=== PATIENT | male | born 1960 | race Two or more races ===

== ENCOUNTER 2025-06-13 06:00 | Day surgery (SDC) | payer OTHER ==
[2025-06-10 10:22] VITALS: BP 140/87
[2025-06-10 11:18] LABS: BASO % 0.6 % (0.1-1.2); EOS # 0.11 (0.04-0.54); EOS % 1.5 % (0.7-7.0); LYMPH # 2.55 (1.18-3.74); LYMPH % 35.2 % (19.3-53.1); MEAN PLATELET VOLUME 9.70 fl (9.4-12.4); MONO # 0.65 (0.24-0.82); MONO % 9.0 % (4.7-12.5); NEUT # 3.87 (1.56-6.13); NEUT % 53.3 % (34.0-71.1); RED CELL DISTRIBUTION WIDTH 14.3 % (11.6-14.4)
[2025-06-10 11:21] LABS: URINE APPEARANCE Clear; URINE BILIRRUBIN Negative (NEGATIVE); URINE BLOOD Negative; URINE COLOR Yellow; URINE GLUCOSE Negative (NEGATIVE); URINE KETONE Negative (NEGATIVE); URINE LEUKOCYTE Trace; URINE NITRATE Negative; URINE PROTEIN Negative (NEGATIVE); URINE UROBILINOGEN 0.2 E.U./dl
[2025-06-10 11:26] LABS: URINE BACTERIA 17.9 uL (0.0-1933); URINE EPITHELIAL CELLS 1.6 uL (0.0-38.8); URINE RBC 7.4 uL (0.0-20.8); URINE WBC 24.3 uL (0.0-23.2)
[2025-06-10 11:38] LABS: URINE CAST 0.00 uL (0.0-1.40)
[2025-06-10 11:46] LABS: INR 1.1
[2025-06-10 11:56] LABS: BUN CREA RATIO 16.0 (7.0-25.0); CREATININE SERUM 0.9 mg/dL (0.70-1.30); GFR 84.95; GLUCOSE FASTING 104.0 mg/dL (65-100); OSMOLALITY SERUM 282.0 MOSM/KG (275-295)
[~2025-06-13] VITALS: Ht 177.8 cm; Wt 96.2 kg
[~2025-06-13 06:00] MED LIST: CEFADROXIL500 MG PO
[2025-06-13] MEDS ORDERED: TYLENOL ARTHRI650 MG PO (07:59)
[2025-06-13] MEDS ORDERED: TRAMADOL HCL50 MG PO (07:59)
[2025-06-13] MEDS ORDERED: KETO10TA2 PO (07:59)
[2025-06-13] MEDS ORDERED: MIRALAX17 GM PO (07:59)
[2025-06-13] MEDS ORDERED: CIPROFLOXACIN IN 5 % DEXTROSE 400 MG/200 ML PIGGYBAG IV ONE (08:19)
[2025-06-13] MEDS ORDERED: BUPIVACAINE HCL/MPF 0.5% 30ML VIAL ONE (08:42)
[2025-06-13] MEDS ORDERED: SUGAMMADEX SODIUM 200 MG/2 ML VIAL IV ONE (09:31)
[2025-06-13] MEDS ORDERED: KETOROLAC TROMETHAMINE 30 MG VIAL ONE (10:26)
[2025-06-13] MEDS ORDERED: NEURONTIN300 MG PO (10:44)
== END 2025-06-13 13:10 | disposition home or self-care (01) ==
LOC: CIR.AMB 06:00
PROVIDERS: ATTEND Surgery
DX: K42.0 Umbilical hernia with obstruction, without gangrene (principal); Z88.0 Allergy status to penicillin
CPT/HCPCS: 49594; C1781